=== PATIENT | male | born 1935 | race Caucasian/White ===

== ENCOUNTER → 2019-02-10 | Outpatient (CLI) | payer MEDICARE, BC ==
--- NOTE | 2019-02-11 12:24 | XR ---
EXAMINATION TYPE: XR chest 2V DATE OF EXAM: 02/11/2019 COMPARISON: NONE HISTORY: Shortness of breath TECHNIQUE: Frontal and lateral views of the chest are obtained. 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 The aorta is dense and ectatic. No eviden t airspace disease, pneumothorax, or pleural effusion. Prominent lung volumes may be indicative of un derlying COPD. Heart size is normal. IMPRESSION: Asbestos related disease. Consider chest CT for better evaluation.
== END | disposition home or self-care (01) ==
LOC: RADXRMAIN 10:51
PROVIDERS: ATTEND Internal Medicine
DX: J61 Pneumoconiosis due to asbestos and other mineral fibers (principal); R06.02 Shortness of breath
CPT/HCPCS: 71046